=== PATIENT | male | born 1990 | race Two or more races ===

== ENCOUNTER 2019-01-11 11:59 | Emergency (ER) | payer MEDICAID ==
[2019-01-11 12:08] VITALS: BP 134/99
--- NOTE | 2019-01-11 13:00 | ED Physician Documentation ---
History of Present Illness - Stated complaint Stated Complaint: MOUTH/TOOTH - Chief complaint Chief Complaint: General - Additonal information Additional information: This is a 28-year-old male presents with dental pain. He states that he broke a piece of his tooth off in his right back upper molar around 5 days ago. Initially was painless, but he is developed some increasing pain today. He has not noticed any drainage from the site, no facial swelling or red this, no fever. He has been taking ibuprofen. He has not seen a dentist. Review of Systems Constitutional: denies: Fever Throat: reports: Dental pain / toothache Immunocompromised: denies: Immunocompromised PD PAST MEDICAL HISTORY - Allergies Allergies/Adverse Reactions: Allergies Allergy/AdvReac Type Severity Reaction Status Date / Time No Known Drug Allergies Allergy Verified 01/11/19 12:03 - Living Situation Living Arrangement: reports: At home - Family History Family history: reports: Non contributory PD ED PE NORMAL - Vitals Vital signs reviewed: Yes - General General: Alert and oriented X 3, No acute distress - HEENT HEENT: Other (Upper back right molar has some signs of decay, there is no gingival abscess or swelling, no discharge from the area. There is no surroundi ng facial swelling or cellulitis. Range of motion of the jaw's normal, uvula is midline.) - Neck Neck: Supple, no meningeal sign - Cardiac Cardiac: RRR - Respiratory Respiratory: No respiratory distress - Neuro Neuro: Alert and oriented X 3 - Psych Psych: Normal mood, Normal affect Results - Vitals Vitals: Vital Signs - 24 hr 01/11/19 12:04 Temperature 36.8 C Heart Rate 60 Respiratory 16 Rate Blood Pressure 134/99 H O2 Saturation 100 Oxygen O2 Source Room air PD MEDICAL DECISION MAKING - ED course ED course: Patient presents with dental pain at a site where he has a broken tooth. He was given a dose of pain medications here, and a dose of antibiotics as well. I discussed that we will treat with a course of Augmentin, but really needs to see a dentist to reevaluate his tooth and have restorative work done. No signs of more serious infection or abscess today. I also discussed return precautions with any signs of increasing or more concerning infection. Patient agrees with this plan and was discharged home in the care of his friend. Departure - Departure Disposition: 01 Home, Self Care Clinical Impression: Tooth pain Condition: Good Instructions: ED Tooth Pain Follow-Up: Your,Dentist [Other] Discharge Date/Time: 01/11/19 14:00
[2019-01-11] MEDS ORDERED: oxyCODONE 5 MG TABLET PO STA (13:26)
[2019-01-11] MEDS ORDERED: AMOX/CLAV 875 MG/125 MG TABLET PO STA (13:27)
== END 2019-01-11 14:00 | disposition home or self-care (01) ==
LOC: ED 11:59
DX: K08.89 Other specified disorders of teeth and supporting structures (principal); S02.5XXA Fracture of tooth (traumatic), initial encounter for closed fracture; X58.XXXA Exposure to other specified factors, initial encounter; K02.9 Dental caries, unspecified
CPT/HCPCS: 99282; A9270